=== PATIENT | female | born 1995 | race Caucasian/White ===

== ENCOUNTER → 2016-11-07 | Day surgery (SDC) | payer OTHER ==
[~2016-11-07] VITALS: Ht 160 cm; Wt 69.9 kg
[~2016-11-07] MED LIST: IBUPROFEN800 MG PO; KETOROLAC TROME10 M1 PO; MECLIZINE HCL25 MG PO; ORTHO TRI-CYCL1 EAC1 PO; ORTHO TRI-CYCLE1 TA2 PO; TRANSDERM-SCOP1 EACH TOP; ZOFRAN4 M1 PO; ZOFRAN4 M2 SL
--- NOTE | 2016-11-07 17:30 | Operative Report ---
Operative/Inv Procedure Report Surgery Date: 11/07/16 Name of Procedure: Diagnostic laparoscopy Pre-Operative Diagnosis: Pelvic pain Post-Operative Diagnosis: Same and endometriosis Estimated Blood Loss: less than 50ml Surgeon/Secretary Receptionist: ENRIQUE ROWE MD Anesthesia: general endotracheal tube Operative/Procedure Note Note: Seizure note patient was taken the operating room placed supine position after adequate induction general anesthesia via endotracheal tube patient was placed in dorsolithotomy position the vagina from dorsal fashion bladder was catheterized examination under anesthesia performed I at this point a CO2 tenaculum was placed on the Intralipid cervix gentle downward traction Mott cannula was left in place on surgeon regowned and gloved at the level the umbilicus stab incision was made to allow for the entry of Veress needle the abdomen was entirely approximate 4 L of CO2 to liver edge dullness which point the Veress needle was removed a 10 mm trocar was inserted at the umbilicus sheath remained in place through that sheath laparoscope placed under direct visualization a 5 mm port was placed 2 fingerbreadths of symptoms pubis in the midline through that port on a peanut was placed on pictures were taken peanut was removed a blunt port was placed and fluid eye was inserted into the abdomen removed from the peritoneal washings on since removed from the abdomen under direct visualization on the incision at the umbilicus oversewn using 0 for the fascia 3 over was used for interrupted the skin on the Marcaine was injected in 6 skin at the end of the case Mott cannula was removed on Lehman was removed the patient was returned spine position awakened from anesthesia and transferred recovery room awake alert counts correct Findings: Endometriosis implant supine the uterus and on the bladder reflection normal ovaries bilaterally consistent with PCO uterus consistent with adenomyosis
== END ==
LOC: STS 02:34
DX: N80.3 Endometriosis of pelvic peritoneum (principal); R10.2 Pelvic and perineal pain; E28.2 Polycystic ovarian syndrome
CPT/HCPCS: 81025; 88305; J0131; J1580; J2250

== ENCOUNTER 2017-02-26 21:34 | Emergency (ER) | payer OTHER ==
[~2017-02-26] VITALS: Ht 160 cm; Wt 72.6 kg
[2017-02-26 21:40] VITALS: BP 137/85
[2017-02-26] MEDS ORDERED: LORYNA 3 MG-0.1 EACH (22:12)
--- NOTE | 2017-02-26 22:22 | ED GENERAL ADULT ---
History of Present Illness General Chief Complaint: General Adult Stated Complaint: VOMITTING X2 DAYS/WICK/FATIGUE Source: patient Exam Limitations: no limitations Vital Signs & Intake/Output Vital Signs & Intake/Output Vital Signs Date Time Temp Pulse Resp B/P B/P Pulse O2 O2 Flow FiO2 Mean Ox Delivery Rate 02/26 2140 97.4 102 16 137/85 98 Room Air ED Intake and Output 02/27 0000 02/26 1200 Intake Total 0 Output Total Balance 0 Intake, Oral 0 Patient 160 lb Weight Allergies Coded Allergies: meclizine (Intermediate, VISUAL CHANGES 02/26/17) Penicillins (CHILDHOOD 11/05/16) Reconcile Medications Ethinyl Estradiol/Drospirenone (Loryna 3 MG-0.02 MG Tablet) (Unknown Strength) TABLET (Unknown Dose) UNKNOWN (Reported) Triage Note: 21F C/O VOMITING SINCE FRIDAY, HAS ZOFRAN BUT DIDN'T WANT TO TAKE IT. REPORTS SHE ALSO FEELS HER VERTIGO WHICH SEEMS TO BE ACTING UP. UNABLE TO TAKE MECLIZINE DUE TO ALLERGY. REPORTS NOT ABLE TO KEEP FOOD/FLUIDS DOWN. AFEBRILE Triage Nurses Notes Reviewed? yes : No Patient currently breastfeeds: No HPI: 21y F coming in for Nausea x 2 wks and vomiting for two days and dull lower ab pain for 2 weeks. She addressed her N/V to her vertigo acting up and stated that previous meds either caused allergic rx (Meclizine) or not effective (Benzo). She is not seeing any physiotherapist for vertigo and she utilize postures to self-resolution. Her only concern is if she is right now. She said she had a ovarian cyst surgery in November and had never had period ever since, despite she put off her -control pill a month ago. Pt denied fever/night sweat/weight change/mood change/insomnia, dietary/appetite change, Cough/SOB/CP/Palpitation/exercise intolerance, bowel movement/urinary abnormality, or other skin/musculoskeletal/neurological disorders. (AHSAN MINOR,ARIEL GUERRERO) Past History Travel History Traveled to [place] past 21 day No Medical History Any Pertinent Medical History? see below for history Neurological: vertigo EENT: NONE Cardiovascular: hyperlipidemia Respiratory: NONE Gastrointestinal: NONE Hepatic: NONE Renal: NONE Musculoskeletal: NONE Psychiatric: NONE Endocrine: NONE Blood Disorders: NONE Cancer(s): NONE Surgical History Surgical History: TONSILLECTOMY, Ovarian cyst removal in November 2016 Psychosocial History What is your primary language Bhutanese Tobacco Use: Never used Family History Hx Contributory? No (AHSAN MINOR,ARIEL GUERRERO) Review of Systems Review of Systems Constitutional: Reports: no symptoms, see HPI. Comments Constitutional: no significant weight change. No fatigue, fever, night sweats, or exercise intolerance. Respiratory: no cough, wheezing, shortness of breath, or coughing up blood. Cardiovascular: no SOB, palpitations, chest pain, arm pain on exertion, or leg swelling. Gastrointestinal: dull pain in pubic area, N/V in the last 2 weeks. Normal appetite. diarrhea, constipation, abdominal pain, or rectal bleeding. Genitourinary: No incontinence, hematuria, difficulty urinating, or increased frequency. Musculoskeletal: no muscle aches or weakness, no arthralgias/joint pain, or back pain; Neurologic: no loss of consciousness or balance; no weakness, numbness, seizures , or dizziness. Psych: no depression, anxiety, sleep disturbances, homicidal thoughts, or suicidal thoughts. (AHSAN MINOR,ARIEL GUERRERO) Physical Exam Physical Exam General Appearance: well developed/nourished, no apparent distress, alert, awake Head: atraumatic, normal appearance Eyes: Left: normal appearance. Ears, Nose, Throat: normal pharynx, hearing grossly normal Respiratory: normal breath sounds, chest non-tender, no respiratory distress Cardiovascular: regular rate/rhythm, normal peripheral pulses Gastrointestinal: soft, Tenderness slightly above her pubic area Core Measures ACS in differential dx? No CVA/TIA Diagnosis: No Severe Sepsis Present: No Septic Shock Present: No (AHSAN MINOR,ARIEL GUERRERO) Progress Differential Diagnoses I considered the following diagnoses in my evaluation of the patient: [Vertigo flare, , ovarian cyst] Plan of Care: Orders Procedure Date/time Status HUMAN BETA HCG SCREEN 02/27 2248 Complete URINE 02/27 2140 Complete Laboratory Tests 02/26/17 2343: Total Beta HCG NEGATIVE 02/26/17 2200: Urine Test NEGATIVE 02/26/2017 2253 Pt's only concern is whether she is . She is not concerned about dizziness and feeling fine for now. The urine test came back living negative but we will reorder the hcg blood past to make sure she is confident to go home. 02/27/2017 0023 PT's blood Hcg is negative. Pt is feeling well without dizziness or worsening of ab pain. Pt decided to go home and f/u with ObGYn. (AHSAN MINOR,ARIEL GUERRERO) Initial ED EKG: none (AHSAN MINOR,ARIEL GUERRERO) Differential Diagnoses I considered the following diagnoses in my evaluation of the patient: Hand-Off Endorsed To: EDMUNDO RIBERA MD Endorsed Time: 2340 Pending: labs (BETA QUANT HCG) (BRIGIDA RUSSO MD) Departure Departure Disposition: HOME OR SELF CARE Condition: Stable Clinical Impression Primary Impression: Vertigo, intermittent Secondary Impressions: Abdominal pain, suprapubic Referrals: KRISTEN GALVIN MD (PCP/Family) Additional Instructions: Please be follow up with your primary care doctor abd master fisher for current symptoms. Please come back to ER if symptom worsens. Departure Forms: Customer Survey General Discharge Information (AHSAN MINOR,ARIEL GUERRERO) Resident Co-Sign Statement Statement: ED Attending supervision documentation- [X] I saw and evaluated the patient. I have also reviewed all the pertinent lab results and diagnostic results. I agree with the findings and the plan of care as documented in the Resident's documentation. [X] I have reviewed the ED Record and agree with the Resident's documentation. [] Additions or exceptions (if any) to the Resident's note and plan are summarized below: [] (BRIGIDA RUSSO MD) PA/SKI GUIDE Co-Sign Statement Statement: ED Attending supervision documentation- [] I saw and evaluated the patient. I have also reviewed all the pertinent lab results and diagnostic results. I agree with the findings and the plan of care as documented in the PA's/SKI GUIDE's documentation. [X] I have reviewed the ED Record and agree with the PA's/SKI GUIDE's documentation. [] Additions or exceptions (if any) to the PAs/SKI GUIDE's note and plan are summarized below: [] (EDMUNDO RIBERA MD) Critical Care Note Critical Care Note Critical Care Time: non-applicable (AHSAN MINOR,ARIEL GUERRERO)
== END 2017-02-27 00:23 ==
LOC: ERH 21:34
DX: R42 Dizziness and giddiness (principal); R10.30 Lower abdominal pain, unspecified
CPT/HCPCS: 81025